=== PATIENT | male | born 1975 | race Caucasian/White ===

== ENCOUNTER → 2020-08-14 | Outpatient (CLI) | payer BC ==
[~2020-08-14] MED LIST: ALOE VERA TP; AMBIEN 10 MG TA10 MG PO; AVAPRO 150 MG150 M1 PO; BACTRIM DS TAB1 EACH PO; BELBUCA150 MCG BC; BLOOD PRESSURE MED; BYSTOLIC10 MG PO; CYMBALTA60 MG PO; FENTANYL PA50 MCG/HR TRANSDERM; FENTANYL PATCH75 MCG TRANSDERM; GLUCOPHAGE1000 MG PO; HYDROCODON-ACE1 EAC5 PO; HYDROCODONE-APA1 TA1 PO; LYRICA 50 MG50 MG PO; MOBIC15 MG PO; NORTRIPTYLINE H25 M3 PO; OXYCONTIN20 M1 PO; ROXICODONE30 MG PO; SPIRONOLACTONE25 MG PO; TESTOSTERO200 MG/1 M IM; UTI MED; ZYRTEC10 MG PO
== END ==
LOC: SJCVCIMAG 10:48
PROVIDERS: ATTEND Internal Medicine Cardiovascular Disease
DX: I11.9 Hypertensive heart disease without heart failure (principal); R00.0 Tachycardia, unspecified; E11.9 Type 2 diabetes mellitus without complications; E66.01 Morbid (severe) obesity due to excess calories